=== PATIENT | male | born 1995 | race Caucasian/White ===

== ENCOUNTER 2016-06-06 12:11 | Emergency (ER) | payer OTHER ==
[~2016-06-06] VITALS: Ht 170.2 cm; Wt 74.5 kg
[~2016-06-06 12:11] MED LIST: CITA20TA6; LANS30CA47; METO5TAB11; RANI150T5
[2016-06-06 12:25] VITALS: Ht 170.2 cm; Wt 74.5 kg
[2016-06-06] MEDS ORDERED: ONDANSETRON (ODT) 4 MG TAB ODT STA (13:42)
--- NOTE | 2016-06-06 13:42 | ERD ---
ER Documentation Chief Complaint Date/Time DATE: 06/06/16 TIME: 13:37 Chief Complaint MID ABDOMINAL PAIN X 1 DAY, DIFFICULTY URINATING X 1 DAY HPI 20-year-old male who presented emergency room for mid abdominal pain, difficulty urinating. Stated that he had a diarrhea multiple times for the past 24 hours with watery stools. He also stated that he vomited multiple times in the past 24 hours with food particles. Denies headache, loss of consciousness, dizziness, blurry vision, changes in vision, photophobia, facial pain, ear pain, throat pain, difficulty swallowing, neck pain, shoulder pain, chest pain, cough, hemoptysis, back pain, loss of appetite, hematochezia, constipation, bladder and bowel incontinences, extremity weakness, extremity tenderness, numbness or tingling sensation, difficulty walking, recent travel, recent exposure to illness, recent antibiotic use in the last 3 months, fever, chills. Allergy: No known drug allergies. PMH: Gastritis. Medications: Denies. Surgery: Denies. Family history: Denies. 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 Denies smoking, use of alcohol, use of illegal drugs. ROS All systems reviewed and are negative except as per history of present illness. Medications Home Meds Reported Medications Metoclopramide Hcl* (Metoclopramide Hcl*) 5 Mg Tablet 03/03/10 Citalopram Hydrobromide* (Citalopram Hydrobromide*) 20 Mg Tablet 03/03/10 Ranitidine Hcl* (Ranitidine Hcl*) 150 Mg Tablet 03/03/10 Lansoprazole* (Prevacid*) 30 Mg Capsule. 03/03/10 Allergies Allergies: Coded Allergies: No Known Allergies (Verified Allergy, Unknown, 06/06/16) PMhx/Soc Medical and Surgical Hx: pt denies Medical Hx, pt denies Surgical Hx History of Surgery: No Anesthesia Reaction: No Hx Neurological Disorder: No Hx Respiratory Disorders: No Hx Cardiac Disorders: No Hx Psychiatric Problems: No Hx Miscellaneous Medical Probl: Yes (gastritis) Hx Alcohol Use: Yes Hx Substance Use: No Hx Tobacco Use: No Smoking Status: Never smoker Physical Exam Vitals Vital Signs Date Time Temp Pulse Resp B/P Pulse Ox O2 Delivery O2 Flow Rate FiO2 06/06/16 12:59 87 18 160/72 100 Room Air 06/06/16 12:25 101.2 86 20 154/65 100 Physical Exam CONSTITUTIONAL: Well-appearing; well-nourished; in no apparent distress. HEAD: Normocephalic; atraumatic. EYES: Conjunctiva clear, sclera non-icteric, EOM intact. PERRLA. Ears: Hearing intact. EACs clear, TMs non-bulging, non-inflamed, translucent & mobile, ossicles normal appearance, No obstructions, no erythema, no discharges Nose: No obstructions. No polyps. No external lesions. Mucosa non-inflamed. No external lesions, septum and turbinates normal. No rhinorrhea. No discharges. Frontal sinus is non-tender to palpation. Maxillary sinus is non-tender to palpation. MOUTH: Moist mucous membranes, no lesion, no obstructions, no vesicles, no thrush, patent airway Throat: Uvula in midline. Right tonsil is +1 with no erythema, no exudate. Left tonsil is +1 with no erythema, no exudate. Tolerating secretions well. Good gag reflex. Patent airway. Neck: Supple, without lesions, bruits, or adenopathy. No mass. Thyroid non- enlarged and non-tender to palpation. CHEST: Symmetrical chest. Respirations even and not labored. No retractions noted. CARDIOVASCULAR: Normal S1, S2. RRR. No murmurs, gallops. RESPIRATORY: Normal chest excursion with respiration; breath sounds clear and equal bilaterally; no wheezes, rhonchi, or rales. Breathing even and unlabored. Speaking in clear, full, and complete sentences w/ ease. ABDOMEN: Normal bowel sounds normal. Soft, round, non-distended, non-guarding, no tenderness, no rebound, no organomegaly, no masses, no pulsating abdominal mass. No hernia. No peritoneal signs. Able to jump 5 times without abdominal pain. Negative on [place] sign. Negative on Rovsing's sign. : No CVA tenderness. BACK: Symmetrical shoulder. Spine is midline without deformity, tenderness. No evidence of trauma or deformity. PELVIS: Stable pelvis. No evidence of trauma or deformity. MUSCULOSKELETAL: Normal gait and station. No misalignment, asymmetry, crepitation, defects, tenderness, masses, effusions, decreased range of motion, instability, atrophy or abnormal strength or tone in the head, neck, spine, ribs , pelvis or extremities. No calf tenderness. NEUROVASCULAR: Distal pulses are present. Pedal pulse are present, equal, and normal. Capillary refills are < 2 seconds. NEUROLOGIC: Alert and oriented x4. Speaks full and clear sentences. Cranial Nerves II-XII normal. Sensation to pain, touch, and proprioception normal. Grossly unremarkable. No neurologic deficits. Romberg test is negative. PSYCHOLOGICAL: The patients mood and manner are appropriate. No hallucinations , delusions. Not SI. Not HI. Has the capacity to decide for self SKIN: Normal for age and ethnicity; warm; dry; good turgor; no apparent lesions or exudates. No rashes, hives, discoloration. Intact. Results 24 hrs Laboratory Tests Test 06/06/16 13:25 06/06/16 13:45 Urine Color YELLOW Urine Clarity CLEAR Urine pH 7.0 Urine Specific [place] 1.010 Urine Ketones TRACE Urine Nitrite NEGATIVE Urine Bilirubin NEGATIVE Urine Urobilinogen 1.0 E.U./dL Urine Leukocyte Esterase NEGATIVE Urine Microscopic RBC NONE SEEN/HPF Urine Microscopic WBC 0-2/HPF Urine Squamous Epithelial Cells FEW Urine Mucus FEW Urine Hemoglobin NEGATIVE Urine Glucose NEGATIVE% Urine Total Protein 1+ Bedside Urine pH (LAB) 8.5 Bedside Urine Protein (LAB) 1+ Bedside Urine Glucose (UA) Negative Bedside Urine Ketones (LAB) Trace Bedside Urine Blood Negative Bedside Urine Nitrite (LAB) Negative Bedside Urine Leukocyte Esterase (L Negative Current Medications Medications (Trade) Dose Ordered Sig/Henri Route PRN Reason Start Time Stop Time Status Last Admin Dose Admin Ondansetron HCl (Zofran Odt) 4 mg ONCE STAT ODT 06/06/16 13:42 06/06/16 13:44 DC 06/06/16 13:52 Miscellaneous Medication (Gi Cocktail (2)) 40 ml ONCE ONCE PO 06/06/16 14:00 06/06/16 14:01 DC 06/06/16 13:52 Procedures/MDM Examination: Please see physical examination. Disease process, medical treatment was explained to the patient and family member. They verbalized understanding and agreed with the diagnostic tests, medical treatment, and follow-up care. Urinalysis: Reviewed. Culture urine: Treatment: Zofran. GI cocktail. Re-evaluation: Denies headache, dizziness, blurry vision, neck pain, chest pain , abdominal pain. No nausea and vomiting. No episode of emesis here to emergency department. There is no right upper and right lower, epigastric, left upper and left lower abdominal tenderness on palpation. Negative on Rovsing's sign. Negative [place] sign. Able to jump 5 times without abdominal pain. No difficulty walking. Consultation: None. Differential diagnosis: Appendicitis versus pyelonephritis versus nephrolithiasis versus gastritis versus urinary tract infection Medical decision makin-year-old male who presented emergency room for mid abdominal pain, difficulty urinating. Stated that he had a diarrhea multiple times for the past 24 hours with watery stools. He also stated that he vomited multiple times in the past 24 hours with food particles. Patient's complaint, patient's history about his complaint, my physical findings, results are consistent with final diagnosis of gastroenteritis, gastritis. I have low suspicion for appendicitis at this time. Patient able to ambulate without abdominal pain. Patient is able to jump 5 times without abdominal pain. Negative on S[place] sign. Negative on Rovsing's sign. Medications prescribed are the following: Zofran. Pepcid. tylenol. Patient and family member are made aware of the side effects and adverse reactions of the medications prescribed. Instructed on when to seek emergent and medical attention in case allergic/anaphylactic reactions or severe side effects and or adverse reactions to medications. Patient and family member verbalized understanding. Patient instructed Instructed to follow-up with his PCP in 24-48 hours. Instructed to come back in 8 to 12 hours if abdominal pain has increased. Instructed to Call 911 for chest pain, shortness of breath. Advised to come back here in ED as soon as possible for severity of symptoms which includes but not limited to: any new symptoms; shortness of breath/difficulty of breathing; cardiovascular changes; severe gastrointestinal symptoms; signs and symptoms of bleeding and or infection; signs of compartment syndrome/neurovascular changes; neurological changes/deficits. Patient and family member verbalized understanding. Upon discharge, patient is alert and oriented x 4, speaks full and clear sentences, denies pain, has no neurological deficits, has no neurovascular deficits, difficulty of breathing. Breathing even and unlabored. Lung sounds are clear to auscultation. Not in distress. Appears comfortable. Ambulatory with steady gait. Appears satisfied with care provided here in ED. Departure Diagnosis: Primary Impression: Abdominal pain Condition: Good Additional Instructions: Patient instructed Instructed to follow-up with his PCP in 24-48 hours. Instructed to come back in 8 to 12 hours if abdominal pain has increased. Instructed to Call 911 for chest pain, shortness of breath. Advised to come back here in ED as soon as possible for severity of symptoms which includes but not limited to: any new symptoms; shortness of breath/difficulty of breathing; cardiovascular changes; severe gastrointestinal symptoms; signs and symptoms of bleeding and or infection; signs of compartment syndrome/neurovascular changes; neurological changes/deficits. Patient and family member verbalized understanding. KIKO CARLSON Jun 06, 2016 13:42 KIKO CARLSON Jun 06, 2016 13:42
[2016-06-06 13:45] LABS: URINE BLOOD (Dip) POC Negative (NEGATIVE)
[2016-06-06] MEDS ORDERED: LIDOCAINE/MYLANTA 40 ML BTL PO ONE (14:00)
[2016-06-06 14:20] LABS: ADD UMIC YES; URINE BILIRUBIN (Dip) NEGATIVE (NEGATIVE); URINE BLOOD (Dip) NEGATIVE (NEGATIVE); URINE COLOR YELLOW (YELLOW); URINE GLUCOSE (Dip) NEGATIVE (NEGATIVE); URINE KETONES (Dip) TRACE (NEGATIVE); URINE LEUKOCYTE ESTERASE (Dip) NEGATIVE (NEGATIVE); URINE NITRITE (Dip) NEGATIVE (NEGATIVE); URINE TOTAL PROTEIN (Dip) 1+ (NEGATIVE); URINE UROBILINOGEN (Dip) 1.0 E.U./dL (0.1-1.0)
[2016-06-06 14:33] LABS: MUCUS,URINE FEW; SQUAMOUS EPITHELIAL CELL,UR FEW; URINE RBCS NONE SEEN /HPF (0)
[2016-06-06] MEDS ORDERED: ONDA4TAB14 PO (15:07)
[2016-06-06] MEDS ORDERED: FAMO-18 PO (15:08)
[2016-06-06] MEDS ORDERED: ACET500C5 PO (15:08)
[2016-06-06 15:28] VITALS: BP 133/78; PULSE 89; RESP 18; TEMP 99.5
[2016-06-06] MEDS ORDERED: IBUPROFEN 800 MG TAB PO ONE (15:30)
[2016-06-06] MEDS ORDERED: ACETAMINOPHEN 325 MG TAB PO ONE (15:30)
== END 2016-06-06 16:06 | disposition home or self-care (01) ==
LOC: FTE 12:11
DX: R10.9 Unspecified abdominal pain (principal); R11.10 Vomiting, unspecified
CPT/HCPCS: 81001; 81003; 87086; Z7502; Z7610; 99283

== ENCOUNTER 2018-06-25 17:59 | Emergency (ER) | payer OTHER ==
[~2018-06-25] VITALS: Ht 162.6 cm; Wt 72.3 kg
[~2018-06-25 17:59] MED LIST changes: +ACET500C5 PO; -CITA20TA6; +CITA20TA8; +FAMO-96 PO; -METO5TAB11; +METO5TAB2; +ONDA4TAB14 PO
[2018-06-25 18:31] VITALS: BP 150/84; PULSE 64; RESP 19; Ht 162.6 cm; Wt 72.3 kg
[2018-06-25] MEDS ORDERED: IBUP-1561 PO (20:05)
[2018-06-25] MEDS ORDERED: ACET-141 PO (20:05)
[2018-06-25] MEDS ORDERED: METH750T93 PO (20:06)
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
== END 2018-06-25 20:37 | disposition home or self-care (01) ==
LOC: E/R 17:59
DX: M54.2 Cervicalgia (principal); M79.641 Pain in right hand
CPT/HCPCS: 29125; 72040; 73130; Z7502

== ENCOUNTER 2018-07-02 17:33 | Emergency (ER) | payer OTHER ==
[~2018-07-02] VITALS: Wt 73.2 kg
[~2018-07-02 17:33] MED LIST changes: +ACET-141 PO; +IBUP-1561 PO; +METH750T93 PO
[2018-07-02 17:56] VITALS: BP 145/65; PULSE 80; RESP 16
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
== END 2018-07-02 20:14 | disposition home or self-care (01) ==
LOC: FTE 17:33
DX: K12.0 Recurrent oral aphthae (principal)
CPT/HCPCS: 99282